=== PATIENT | male | born 1950 ===

== ENCOUNTER 2017-02-15 07:30 | Emergency (ER) | payer OTHER ==
[2017-02-15] MEDS ORDERED: Sodium Chloride 0.9% 1,000 ML ONE (08:48)
[2017-02-15] MEDS ORDERED: Sodium Chloride 0.9% 1,000 ML IV ONE (08:51)
--- NOTE | 2017-02-15 08:51 | C.PDOC ---
History Of Present Illness 66 y/o male, who denies any past medical hsitory, presents to the ED complaining of headache, photophobia, non-productive cough, pleuritic chest pain , abdominal pain, nausea, vomiting, myalgias, tactile fever, and ear pain x 3 days. Patient denies diarrhea, neck pain/stiffness, rash, shortness of breath, or other complaints. Time Seen by Provider: 02/15/17 07:57 Chief Complaint (Nursing): Flu-like Symptoms History Per: Patient History/Exam Limitations: no limitations Onset/Duration Of Symptoms: Days (3), Persistent Current Symptoms Are (Timing): Still Present Recent travel outside of the [place]: No Past Medical History Reviewed: Historical Data, Nursing Documentation, Vital Signs Vital Signs: Last Vital Signs Temp 99.4 F 02/15/17 14:28 Pulse 100 H 02/15/17 14:28 Resp 18 02/15/17 14:28 BP 126/78 02/15/17 14:28 Pulse Ox 98 02/15/17 17:01 - Medical History PMH: No Chronic Diseases Surgical History: No Surg Hx Family History: States: Unknown Family Hx - Social History Hx Tobacco Use: No Hx Alcohol Use: Yes (social) Hx Substance Use: Yes (marijuana) - Immunization History Hx Tetanus Toxoid Vaccination: No Hx Influenza Vaccination: No Hx Pneumococcal Vaccination: No Review Of Systems Constitutional: Positive for: Fever (tactile), Other (myalgias) ENT: Positive for: Ear Pain (right) Respiratory: Positive for: Cough, Pleuritic Pain. Negative for: Shortness of Breath, Sputum Gastrointestinal: Positive for: Nausea, Vomiting, Abdominal Pain. Negative for : Diarrhea Musculoskeletal: Negative for: Neck Pain Skin: Negative for: Rash Neurological: Positive for: Headache, Other (photophobia) Physical Exam - Physical Exam Appears: Non-toxic, No Acute Distress, Other (uncomfortable) Skin: Normal Color, Warm, Dry, No Rash Head: Atraumatic, Normacephalic Eye(s): bilateral: Normal Inspection, PERRL, EOMI Ear(s): Left: Normal, Right: Other (mild erythema) Nose: Normal Oral Mucosa: Dry Throat: Erythema, No Exudate, No Other (tonsillar enlargement) Neck: Normal ROM, No Midline Cervical Tenderness, Supple, No Other (meningial signs) Chest: Symmetrical, No Tenderness Cardiovascular: Rhythm Regular, Other (tachycardic) Respiratory: Normal Breath Sounds, No Rales, No Rhonchi, No Wheezing Gastrointestinal/Abdominal: Soft, Tenderness (mild, diffuse, mostly epigastric) , No Guarding, No Rebound Back: Normal Inspection, No CVA Tenderness, No Vertebral Tenderness Extremity: Normal ROM, No Swelling Extremity: Bilateral: Normal Color And Temperature Neurological/Psych: Oriented x3, Normal Speech, Normal Cognition ED Course And Treatment - Laboratory Results Result Diagrams: 02/15/17 09:06 02/15/17 09:06 O2 Sat by Pulse Oximetry: 98 (ra) Pulse Ox Interpretation: Normal - Other Rad Chest X-Ray X-Ray: Viewed By Me, Read By Radiologist (Dr. Joshi, Sushil SAHNI) Interpretation: FINDINGS: LUNGS: Left upper lobe infiltrate/ mass. Follow-up to resolution strongly recommended. CT thorax may clarify these findings. PLEURA: Biapical pleural thickening/ scarring. CARDIOVASCULAR: Normal. OSSEOUS STRUCTURES: No significant abnormalities. VISUALIZED UPPER ABDOMEN: Normal. OTHER FINDINGS: None. IMPRESSION: Left upper lobe infiltrate/ mass. Followup to resolution advised. Medical Decision Making Medical Decision Making: Plan: * CXR * Labs * Rapid Flu * Pepcid IVP, Zofran, IVP, Tylenol PO, IV FLuids * Reeval 1230 pm pt feeling better, headache resolved, n/v and abdominal pain resolved. po challenge ordered. 451pm pt was discharged at 220pm with zithromax; official cxr reading seen after discharge with dx of left upper lobe pna/mass. pt called at phone number listed ([phone]) AND MESSAGE LEFT FOR PATIENT TO CALL ED back at [phone]. Please advise patient to return to ED for further treatment. Disposition Counseled Patient/Family Regarding: Studies Performed, Diagnosis, Need For Followup, Rx Given - Disposition Referrals: [facility] [Outside] [facility] [Outside] Disposition: HOME/ ROUTINE Disposition Time: 14:23 Condition: GOOD Additional Instructions: Follow up in medical clinic or with your doctor on saturday. Take antibotics as prescribed. Return to ER for any worsening sympotms. Drink increased fluids and take tylenol or motrin for pain or fever. Prescriptions: Famotidine [Pepcid] 20 mg PO DAILY #14 tab Azithromycin [Z-J Carlos] 250 mg PO DAILY #6 tab Instructions: Influenza (ED) Forms: Gen Discharge Inst Kinyarwanda Print Language: KHMER - Clinical Impression Clinical Impression: Influenza-like illness - PA / [employer] / Resident Statement MD/DO has reviewed & agrees with the documentation as recorded. - Scribe Statement The provider has reviewed the documentation as recorded by the Scribe (Arely Eldridge) All medical record entries made by the Scribe were at my direction and personally dictated by me. I have reviewed the chart and agree that the record accurately reflects my personal performance of the history, physical exam, medical decision making, and the department course for this patient. I have also personally directed, reviewed, and agree with the discharge instructions and disposition.
--- NOTE | 2017-02-15 08:53 | C.PDOC ---
Time Seen by Provider: 02/15/17 07:57 Chief Complaint (Nursing): Flu-like Symptoms Past Medical History Vital Signs: Last Vital Signs Temp 98.5 F 02/15/17 07:33 Pulse 104 H 02/15/17 07:33 Resp 16 02/15/17 07:33 BP 145/82 02/15/17 07:33 Pulse Ox 98 02/15/17 07:33 Family History: States: Unknown Family Hx - Social History Hx Alcohol Use: Yes Hx Substance Use: Yes - Immunization History Hx Tetanus Toxoid Vaccination: No Hx Influenza Vaccination: No Hx Pneumococcal Vaccination: No ED Course And Treatment O2 Sat by Pulse Oximetry: 98
[2017-02-15 09:15] LABS: BASO % 0.4 % (0.0-2.0); HEMATOCRIT 44.8 % (35.0-51.0); LYMPH # 0.6 K/uL (1.0-4.3); LYMPH % 5.3 % (20.0-40.0); MEAN CELL VOLUME 87.5 fL (80.0-94.0); MEAN CORPUSCULAR HEMOGLOBIN 29.2 pg (27.0-31.0); MEAN CORPUSCULAR HGB CONC 33.3 g/dL (33.0-37.0); MEAN PLATELET VOLUME 7.4 fL (7.2-11.7); MONO # 0.9 K/uL (0.0-0.8); MONO % 7.6 % (0.0-10.0); NRBC % 0.1 % (0.0-2.0); PLATELET COUNT 254 K/uL (130-400); WHITE BLOOD COUNT 11.3 K/uL (4.8-10.8)
[2017-02-15 09:37] LABS: NEUTROPHIL 84 % (50-75); TOTAL CELLS COUNTED 100
[2017-02-15 09:46] LABS: RBC URINE 25 /hpf (0-3); URINE BACTERIA RARE (<OCC); URINE BILIRUBIN NEGATIVE (NEGATIVE); URINE BLOOD 2+ (NEGATIVE); URINE COLOR Yellow (YELLOW); URINE GLUCOSE (UA) NORMAL (Normal); URINE KETONE 2+ mg/dL (NEGATIVE); URINE LEUKOCYTE ESTERASE NEG Leu/uL (Negative); URINE PROTEIN 1+ mg/dL (NEGATIVE); WBC URINE 2 /hpf (0-5)
[2017-02-15] MEDS ORDERED: Dextrose 5%/0.45% NS 1,000 ML IV SCH (10:15)
[2017-02-15 10:30] LABS: CHLORIDE 89 mmol/L (98-107); POTASSIUM 4.1 mmol/L (3.6-5.2); SODIUM 131 mmol/L (132-148)
[2017-02-15 10:32] LABS: BILIRUBIN,TOTAL 0.9 mg/dL (0.2-1.3); GFR AFRICAN-AMERICAN > 60
[2017-02-15 10:33] LABS: ALB/GLOB RATIO 1.2 (1.0-2.1); ALKALINE PHOSPHATASE 63 U/L (38-126); ALT/SGPT 33 U/L (21-72); AST/SGOT 50 U/L (17-59); BLOOD UREA NITROGEN 11 mg/dL (9-20); CALCIUM 8.9 mg/dl (8.6-10.4); CARBON DIOXIDE 24 mmol/L (22-30); GLUCOSE,RANDOM 107 mg/dL (75-110); TOTAL PROTEIN 8.2 g/dL (6.3-8.3)
[2017-02-15 11:36] VITALS: RESP 18
--- NOTE | 2017-02-15 14:18 | RAD ---
HISTORY: cough COMPARISON: No prior. TECHNIQUE: Chest PA and lateral FINDINGS: LUNGS: Left upper lobe infiltrate/ mass. Follow-up to resolution strongly recommended. CT thorax may clarify these findings. PLEURA: Biapical pleural thickening/ scarring. CARDIOVASCULAR: Normal. OSSEOUS STRUCTURES: No significant abnormalities. VISUALIZED UPPER ABDOMEN: Normal. OTHER FINDINGS: None. IMPRESSION: Left upper lobe infiltrate/ mass. Followup to resolution advised.
[2017-02-15 14:35] VITALS: BP 126/78; PULSE 100; TEMP 99.4
[2017-02-15 17:01] VITALS: O2SAT 98
== END 2017-02-15 14:45 | disposition home or self-care (01) ==
LOC: C.ER 07:30
DX: J11.1 Influenza due to unidentified influenza virus with other respiratory manifestations (principal)
CPT/HCPCS: 71020; 80053; 81001; 83690; 85025; 87804; 96361; 96374; 96375; 99285; J2405; J7040; J7042

== ENCOUNTER 2017-03-08 07:46 | Emergency (ER) | payer SELFPAY ==
[2017-03-08 07:51] VITALS: RESP 18
--- NOTE | 2017-03-08 09:55 | CT ---
PROCEDURE: CT Chest without contrast HISTORY: mass on CXR COMPARISON: None. TECHNIQUE: Contiguous axial images were obtained through the chest without intravenous contrast enhancement. Sagittal and coronal reconstructions were performed. Radiation dose (DLP): 559.58 mGy-cm. This CT exam was performed using one or more of the following dose reduction techniques: Automated exposure control, adjustment of the mA and/or kV according to patient size, and/or use of iterative reconstruction technique. FINDINGS: LUNGS: There is mild centrilobular emphysema. There is left upper lobe opacity, nonspecific. Possibly pneumonia. There is no discrete mass identified. There is ground-glass opacity in the posterior segment of the right upper lobe. There is some ground-glass opacity noted in the apical posterior left upper lobe as well. There is a small pleural-based density in the anterior right upper lobe, 9 mm in width but 16 mm craniocaudal. This is unlikely to represent a neoplastic process given the elongated nature of this focal pleural density. More likely this represents pleural scar. Nevertheless, followup is advised with noncontrast chest CT. MEDIASTINUM: Unremarkable thoracic aorta. No aneurysm. Normal sized heart. Main pulmonary artery unremarkable. No vascular congestion. No lymphadenopathy. PLEURA: No pleural fluid. No pneumothorax. BONES: No fracture. No destructive lesion. UPPER ABDOMEN: Left upper pole renal cortical cyst, 4.0 cm diameter. Visualized liver, spleen, pancreas and adrenal glands are unremarkable. OTHER FINDINGS: None. IMPRESSION: Left upper lobe ill-defined opacity, possibly infectious etiology. No discrete mass identified. Nonspecific ground-glass opacity posterior segment right upper lobe and apical posterior left upper lobe. Mild centrilobular emphysema. No lymphadenopathy. 1.6 cm vertically-oriented pleural-based density anterior right upper lobe. Possible pleural scar. Neoplasm unlikely. Left upper pole renal cyst.
--- NOTE | 2017-03-08 10:19 | C.PDOC ---
History Of Present Illness 66-year-old male, presents to the emergency department for repeat chest XR/ Imaging. Patient states he was seen in the ED on 02/15 for flu-like symptoms. Patient had a chest x-ray, and he was discharged home with Zithromax (has not finished course). Patients x-ray was reviewed and he was found to have an infiltrate vs mass. Patient was called and asked to return to the ED for repeat exam. Patient states he feels better. Denies any new complaints at this time. Notes that he was a smoker x50 years and quit three years ago, but still smokes Marijuana. 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 Chief Complaint (Nursing): Medical Clearance History Per: Patient History/Exam Limitations: no limitations Past Medical History Reviewed: Historical Data, Nursing Documentation, Vital Signs Vital Signs: Last Vital Signs Temp 98.5 F 03/08/17 10:47 Pulse 84 03/08/17 10:47 Resp 18 03/08/17 10:47 BP 138/83 03/08/17 10:47 Pulse Ox 97 03/08/17 11:56 Family History: States: Unknown Family Hx - Social History Hx Tobacco Use: No Hx Alcohol Use: Yes (social) Hx Substance Use: Yes (marijuana) - Immunization History Hx Tetanus Toxoid Vaccination: No Hx Influenza Vaccination: No Hx Pneumococcal Vaccination: No Review Of Systems Except As Marked, All Systems Reviewed And Found Negative. Constitutional: Negative for: Fever, Chills Cardiovascular: Negative for: Chest Pain Respiratory: Negative for: Shortness of Breath Gastrointestinal: Negative for: Vomiting Skin: Negative for: Rash Neurological: Negative for: Weakness, Numbness Physical Exam - Physical Exam Appears: Non-toxic, No Acute Distress Skin: Warm, Dry, No Rash Eye(s): bilateral: Normal Inspection, PERRL Nose: Normal Oral Mucosa: Moist Lips: Normal Appearing Neck: Normal ROM, Supple Cardiovascular: Rhythm Regular Respiratory: Normal Breath Sounds, No Accessory Muscle Use Extremity: Normal ROM Neurological/Psych: Oriented x3, Normal Speech ED Course And Treatment O2 Sat by Pulse Oximetry: 97 - CT Scan/US CT CHEST Other Rad Studies (CT/US): Read By Radiologist, Radiology Report Reviewed CT/US Interpretation: Accession No. : [id number]. Patient Name / ID : SHAHAB CAMACHO / [id number]. Exam Date : 03/08/2017 09:12:42 ( Approved ). Study Comment : Sex / Age : M / 66Y. Creator : lulu eid. Dictator : Lee Siegel MD. Word Processing Machine Operator : Loader Technician : Lee Siegel MD. Approver2 : Report Date : 03/08/2017 09:19:23. My Comment : . PROCEDURE: CT Chest without contrast. HISTORY: mass on CXR. COMPARISON: None. TECHNIQUE: Contiguous axial images were obtained through the chest without intravenous contrast enhancement. Sagittal and coronal reconstructions were performed. . Radiation dose (DLP): 559.58 mGy-cm. This CT exam was performed using one or more of the following dose reduction techniques: Automated exposure control, adjustment of the mA and/or kV according to patient size, and/or use of iterative reconstruction technique. FINDINGS: LUNGS: There is mild centrilobular emphysema. There is left upper lobe opacity, nonspecific. Possibly pneumonia. There is no discrete mass identified. There is ground-glass opacity in the posterior segment of the right upper lobe. There is some ground-glass opacity noted in the apical posterior left upper lobe as well. There is a small pleural-based density in the anterior right upper lobe, 9 mm in width but 16 mm craniocaudal. This is unlikely to represent a neoplastic process given the elongated nature of this focal pleural density. More likely this represents pleural scar. Nevertheless, followup is advised with noncontrast chest CT. MEDIASTINUM: Unremarkable thoracic aorta. No aneurysm. Normal sized heart. Main pulmonary artery unremarkable. No vascular congestion. No lymphadenopathy. PLEURA: No pleural fluid. No pneumothorax. BONES: No fracture. No destructive lesion. UPPER ABDOMEN: Left upper pole renal cortical cyst, 4.0 cm diameter. Visualized liver, spleen, pancreas and adrenal glands are unremarkable. OTHER FINDINGS: None. IMPRESSION: Left upper lobe ill-defined opacity, possibly infectious etiology. No discrete mass identified. Nonspecific ground-glass opacity posterior segment right upper lobe and apical posterior left upper lobe. Mild centrilobular emphysema. No lymphadenopathy. 1.6 cm vertically-oriented pleural-based density anterior right upper lobe. Possible pleural scar. Neoplasm unlikely. Left upper pole renal cyst. Progress Note: Plan: CT chest and Avelox ordered and reviewed. Progress: Patient given a copy of chest CT report, he will be discharged home for outpatient f/u, in 4-5 weeks he has to repeat XR. Patient agreeable with plan. All questions answered. Disposition - Disposition Referrals: [facility] [Outside] [facility] [Outside] Disposition: HOME/ ROUTINE Disposition Time: 10:33 Condition: STABLE Additional Instructions: Follow up with PMD/Clinic within 1-2 days. Return to ED if feel worse. Chest Xray should be repeated within 4-5 weeks for infiltrate resolution. Prescriptions: Moxifloxacin [Avelox] 400 mg PO DAILY #9 tab Instructions: Pneumonia (ED) Print Language: WOLOF - Clinical Impression Clinical Impression: Pneumonia - Scribe Statement The provider has reviewed the documentation as recorded by the Belliblanie Coy All medical record entries made by the Belliblanie were at my direction and personally dictated by me. I have reviewed the chart and agree that the record accurately reflects my personal performance of the history, physical exam, medical decision making, and the department course for this patient. I have also personally directed, reviewed, and agree with the discharge instructions and disposition.
[2017-03-08 10:48] VITALS: BP 138/83; PULSE 84; TEMP 98.5
[2017-03-08 11:11] VITALS: O2SAT 97
== END 2017-03-08 10:47 | disposition home or self-care (01) ==
LOC: C.ER 07:46
DX: J18.9 Pneumonia, unspecified organism (principal)

== ENCOUNTER 2017-03-18 07:24 | Emergency (ER) | payer SELFPAY ==
[2017-03-18 07:38] VITALS: BMI 28.7
[2017-03-18 07:43] VITALS: RESP 16; O2SAT 100
--- NOTE | 2017-03-18 08:15 | C.PDOC ---
History Of Present Illness 66 y/o male presents to the ED requesting antibiotics. Pt was seen here 02/15/17 diagnosed with pneumonia, placed on antibiotics. Pt was told to return to the clinic to repeat CXR in 4-5 weeks. Pt has no complaints, but he didn't understand where he supposed to go for follow up. Patient sts he didn't read his discharge instructions. Denies fever, chills, SOB, chest pain, cough or any other complaints. Time Seen by Provider: 03/18/17 07:45 Chief Complaint (Nursing): Medical Clearance History Per: Patient History/Exam Limitations: no limitations Current Symptoms Are (Timing): Gone Severity: None Reports Recently: Seen In ED Recent travel outside of the [place]: No Past Medical History Reviewed: Historical Data, Nursing Documentation, Vital Signs Vital Signs: Last Vital Signs Temp 98.2 F 03/18/17 09:45 Pulse 59 L 03/18/17 09:45 Resp 16 03/18/17 09:45 BP 145/70 03/18/17 09:45 Pulse Ox 100 03/18/17 09:45 Family History: States: Unknown Family Hx - Social History Hx Tobacco Use: No Hx Alcohol Use: Yes (social) Hx Substance Use: Yes (marijuana) - Immunization History Hx Tetanus Toxoid Vaccination: No Hx Influenza Vaccination: No Hx Pneumococcal Vaccination: No Review Of Systems Except As Marked, All Systems Reviewed And Found Negative. Physical Exam - Physical Exam Appears: Non-toxic, No Acute Distress Skin: Warm, Dry, No Rash Head: Atraumatic, Normacephalic Throat: Normal, No Erythema Neck: Normal, Normal ROM, Supple Chest: Symmetrical, No Tenderness Cardiovascular: Rhythm Regular, No Murmur Respiratory: Normal Breath Sounds, No Accessory Muscle Use, No Rales, No Rhonchi , No Wheezing Gastrointestinal/Abdominal: Normal Exam, Soft, No Tenderness Extremity: Bilateral: Atraumatic Neurological/Psych: Oriented x3 ED Course And Treatment O2 Sat by Pulse Oximetry: 100 (room air) Pulse Ox Interpretation: Normal - Other Rad CXR X-Ray: Viewed By Me, Read By Radiologist Interpretation: Accession No. : [id number]. Patient Name / ID : SHAHAB CAMACHO / [id number]. Exam Date : 03/18/2017 08:28:09 ( Approved ). Study Comment : Sex / Age : M / 66Y. Creator : ELVIN GARCIA. Dictator : Lee Siegel MD. Lens Engraver : Photography Editor : Lee Siegel MD. Approver2 : Report Date : 03/18/2017 08:50:36. My Comment : . HISTORY: f/u pneumonia. COMPARISON: 02/15/2017. TECHNIQUE: Chest PA and lateral. FINDINGS : LUNGS: Marked improvement in extent of left upper lobe opacity compared to prior examination. This opacity was demonstrated to be in the left upper lobe along CT examination of 03/08/2017. There is small residual left upper lobe opacity. No other abnormal opacity elsewhere. PLEURA: No significant pleural effusion identified. No pneumothorax apparent. CARDIOVASCULAR: Normal. OSSEOUS STRUCTURES: Mild thoracolumbar dextroscoliosis. VISUALIZED UPPER ABDOMEN: Normal. OTHER FINDINGS: None. IMPRESSION: Marked improvement in left upper lobe opacity with small residual opacity. No other acute abnormality. Progress Note: Patient was d/c home with Clinic follow up. Medical Decision Making Medical Decision Making: Plan: repeat CXR Disposition - Disposition Referrals: [facility] [Outside] Disposition: HOME/ ROUTINE Disposition Time: 09:28 Condition: STABLE Forms: Gen Discharge Inst Ivorian - Clinical Impression Clinical Impression: Medical assessment - PA / ROOM ATTENDANT / Resident Statement / has reviewed & agrees with the documentation as recorded. - Scribe Statement The provider has reviewed the documentation as recorded by the Te Mckeon All medical record entries made by the Te were at my direction and personally dictated by me. I have reviewed the chart and agree that the record accurately reflects my personal performance of the history, physical exam, medical decision making, and the department course for this patient. I have also personally directed, reviewed, and agree with the discharge instructions and disposition.
--- NOTE | 2017-03-18 09:09 | RAD ---
HISTORY: f/u pneumonia COMPARISON: 02/15/2017 TECHNIQUE: Chest PA and lateral FINDINGS: LUNGS: Marked improvement in extent of left upper lobe opacity compared to prior examination. This opacity was demonstrated to be in the left upper lobe along CT examination of 03/08/2017. There is small residual left upper lobe opacity. No other abnormal opacity elsewhere. PLEURA: No significant pleural effusion identified. No pneumothorax apparent. CARDIOVASCULAR: Normal. OSSEOUS STRUCTURES: Mild thoracolumbar dextroscoliosis. VISUALIZED UPPER ABDOMEN: Normal. OTHER FINDINGS: None. IMPRESSION: Marked improvement in left upper lobe opacity with small residual opacity. No other acute abnormality.
[2017-03-18 09:53] VITALS: BP 145/70; PULSE 59; TEMP 98.2
== END 2017-03-18 09:45 | disposition home or self-care (01) ==
LOC: C.ER 07:24
DX: Z09 Encounter for follow-up examination after completed treatment for conditions other than malignant neoplasm (principal)